=== PATIENT | female | born 1965 | race American Indian/Alaskan Native ===

== ENCOUNTER 2020-07-20 10:58 | Emergency (ER) | payer OTHER ==
[2020-07-20] MEDS ORDERED: IBUPROFEN 800 MG TAB PO ONE ×2 (11:36→15:30)
--- NOTE | 2020-07-20 11:41 | Event Note ---
ED Screening Note Date of service: 07/20/20 Time: 11:39 ED Screening Note: 54-year-old female with a past medical history of hypertension, type 2 diabetes, and bronchitis Complains of chest pain -it started of right-sided 4 days ago but this morning she woke up with left-sided chest pain She reports associated wheezing, and shortness of breath on exertion She denies any cough, swelling, calf pain, fever, chills, nausea, vomiting, or URI symptoms She states that she has had 2 stress tests in the past 10 years, most recent was about 2 years ago, it was a treadmill stress test and it was normal. She states that she typically gets a flareup of her bronchitis once a year. When her symptoms started 4 days ago she has been using the inhaler twice a day without much relief. This initial assessment/diagnostic orders/clinical plan/treatment(s) is/are subject to change based on patients health status, clinical progression and re- assessment by fellow clinical providers in the ED. Further treatment and workup at subsequent clinical providers discretion. Patient/guardian urged not to elope from the ED as their condition may be serious if not clinically assessed and managed. Initial orders include: Chest pain order set.
--- NOTE | 2020-07-20 12:01 | XRay Report ---
CHEST 2 VIEWS INDICATION / CLINICAL INFORMATION: Chest Pain. COMPARISON: None available. FINDINGS: SUPPORT DEVICES: None. HEART / MEDIASTINUM: No significant abnormality. LUNGS / PLEURA: No significant pulmonary or pleural abnormality. No pneumothorax. ADDITIONAL FINDINGS: No significant additional findings. IMPRESSION: 1. No acute findings. Signer Name: Honorio Hutton MD Signed: 07/20/2020 11:57 AM Workstation Name: [id number]
[2020-07-20 12:26] LABS: Basophils % (Auto) 0.4 % (0.0-1.8); Eosinophils % (Auto) 0.4 % (0.0-4.3); Hematocrit 38.8 % (30.3-42.9); Hemoglobin 12.6 gm/dl (10.1-14.3); Lymphocytes % (Auto) 29.2 % (13.4-35.0); Mean Corpuscular HGB Conc 32 % (30-34); Mean Corpuscular Volume 86 fl (79-97); Monocytes # (Auto) 0.5 K/mm3 (0.0-0.8); Monocytes % (Auto) 7.5 % (0.0-7.3); Platelet Count 290 K/mm3 (140-440); Red Cell Distribution Width 14.8 % (13.2-15.2)
[2020-07-20 12:49] LABS: Alanine Aminotransferase 21 units/L (7-56); Blood Urea Nitrogen 8 mg/dL (7-17); Calcium 9.2 mg/dL (8.4-10.2); Hemolysis Index 8
[2020-07-20 12:55] LABS: BUN/Creatinine Ratio 11
--- NOTE | 2020-07-20 14:25 | Emergency Department Report ---
ED General Adult HPI - General Chief complaint: Chest Pain Stated complaint: CHEST PAIN/RESP ISSUE Time Seen by Provider: 07/20/20 11:34 Source: patient Mode of arrival: Ambulatory Limitations: No Limitations - History of Present Illness Initial comments: This 54-year-old female with a past medical history of hypertension diabetes. She presents to the ER complaining that on Wednesday evening she noticed that she had had the need to clear her throat often and that she was wheezing especially when she was in supine position this has continued on and she has been using an inhaler that was prescribed to her for a bout of bronchitis a few few months ivis k. She states that around 6 AM the wheezing that she felt in her chest progressed to be more like pain to her left breast. She denies any fever she denies any productive cough she denies any shortness of breath no abdominal pain no nausea no vomiting no other symptoms. She is currently in no acute distress. at this time -: Gradual (Symptoms of wheezing clearing her throat all started on Wednesday) Location: chest Radiation: non-radiation Quality: aching Consistency: intermittent Worsens with: none Associated Symptoms: chest pain, other (Wheezing) Treatments Prior to Arrival: other (Albuterol inhaler) - Related Data Allergies Allergy/AdvReac Type Severity Reaction Status Date / Time No Known Allergies Allergy Unverified 03/07/18 10:05 ED Review of Systems ROS: Stated complaint: CHEST PAIN/RESP ISSUE Other details as noted in HPI Comment: All other systems reviewed and negative Constitutional: denies: chills, fever, weakness ENT: denies: ear pain, throat pain, dental pain, hearing loss, epistaxis, congestion Respiratory: wheezing. denies: cough, shortness of breath, SOB with exertion, SOB at rest Cardiovascular: chest pain. denies: palpitations, dyspnea on exertion, edema, syncope, paroxysmal nocturnal dyspnea Endocrine: denies: excessive sweating, intolerance to cold, increased urine, unexplained weight gain, unexplained weight loss Gastrointestinal: denies: abdominal pain, nausea, vomiting Genitourinary: denies: urgency, dysuria, frequency, hematuria Neurological: denies: headache, weakness, numbness, paresthesias Psychiatric: denies: anxiety, auditory hallucinations ED Past Medical Hx - Past Medical History Previous Medical History?: Yes Hx Diabetes: Yes - Surgical History Past Surgical History?: No - Social History Smoking Status: Never Smoker ED Physical Exam - General Limitations: No Limitations General appearance: alert, in no apparent distress - Head Head exam: Present: atraumatic, normal inspection - Eye Eye exam: Present: normal appearance - ENT ENT exam: Present: normal exam, mucous membranes dry - Neck Neck exam: Present: normal inspection - Respiratory Respiratory exam: Present: normal lung sounds bilaterally. Absent: respiratory distress, wheezes, rales, rhonchi, chest wall tenderness, accessory muscle use, decreased breath sounds - Cardiovascular Cardiovascular Exam: Present: regular rate, normal heart sounds - GI/Abdominal GI/Abdominal exam: Present: soft, normal bowel sounds. Absent: distended, tenderness, guarding, rebound - Back Exam Back exam: Present: normal inspection - Neurological Exam Neurological exam: Present: alert, oriented X3 - Psychiatric Psychiatric exam: Present: normal affect - Skin Skin exam: Present: warm, dry, intact ED Course Vital Signs 07/20/20 11:06 Temperature 98.4 F Pulse Rate 95 H Respiratory 18 Rate Blood Pressure 166/101 O2 Sat by Pulse 98 Oximetry - Reevaluation(s) Reevaluation #1: 07/20/20 14:25 Patient in no acute distress she is notified of all her results thus far she denies any chest pain at this time she is getting her second troponin drawn all of her findings were all negative. ED Medical Decision Making - Lab Data Result diagrams: 07/20/20 11:53 07/20/20 11:53 - EKG Data EKG shows normal: sinus rhythm Rate: normal (94) - EKG Data Interpretation: other (Sinus rhythm with left atrial enlargement prolonged QT 412) - Radiology Data Radiology results: report reviewed CHEST 2 VIEWS INDICATION / CLINICAL INFORMATION: Chest Pain. COMPARISON: None available. FINDINGS: SUPPORT DEVICES: None. HEART / MEDIASTINUM: No significant abnormality. LUNGS / PLEURA: No significant pulmonary or pleural abnormality. No pneumothorax. ADDITIONAL FINDINGS: No significant additional findings. IMPRESSION: 1. No acute findings. - Medical Decision Making She is well appearing 54-year-old female at the time of my examination she denied any chest pain. Patient described her symptoms starting on Wednesday with wheezing which worsened at night when she laid flat .she used inhaler that was prescribed to relieve her symptoms. Her symptoms progressed and started with her having what felt like pain on the right side of her chest moving to the left side. She denied shortness of breath she denies fever no chills no cough no nausea no vomiting. Patient denies history of allergies but states she has been working outdoors lately. EKG done in the emergency department shows sinus rhythm with probable left atrial enlargement and a rate of 94 her chest x-ray was clear with no acute findings her labs were all within normal limits including a troponin that was less than 0.010. Her repeat troponin was also negative. Her blood pressure 166/101 is elevated with patient does have history of hypertension and she is instructed to follow-up with her PCP regarding this elevated blood pressure. Patient does have a follow-up with Dr. Bryant Dejesus. She is well-appearing and denies any pain at this time I recommend that patient start taking daily allergy medicines such as Zyrtec Claritin or Lucero - Differential Diagnosis Nonspecific chest, seasonal allergy, Critical Care Time: No Critical care attestation.: If time is entered above; I have spent that time in minutes in the direct care of this critically ill patient, excluding procedure time. ED Disposition Clinical Impression: Chest wall pain, Environmental allergies Disposition: - TO HOME OR SELFCARE Is pt being admited?: No Does the pt Need Aspirin: No Condition: Stable Instructions: Allergies, Adult, [id number], Nonspecific Chest Pain, Adult Additional Instructions: You can purchase allergy medication [id number] and take daily as prescribed by package insert you can take one of the following Lucero Claritin or Zyrtec. Please follow-up with Dr. Bryant Dejesus on Wednesday. Return to the emergency room if you develop worsening or increasing or returning chest pain shortness of breath fever coughing. Today your EKG showed no signs of an heart attack. Your cardiac enzymes that was done by blood both were negative. Your chest x-ray showed no acute findings Referrals: BRYANT DEJESUS MD [Primary Care Provider] - 3-5 Days Time of Disposition: 15:09
[2020-07-20 16:18] VITALS: BP 156/98
== END 2020-07-20 15:45 | disposition home or self-care (01) ==
LOC: ED 10:58
DX: T78.40XA Allergy, unspecified, initial encounter (principal); R07.89 Other chest pain; E11.9 Type 2 diabetes mellitus without complications; X58.XXXA Exposure to other specified factors, initial encounter
CPT/HCPCS: 36415; 71046; 80053; 83690; 84484; 85025; 93005

== ENCOUNTER 2021-01-20 14:23 | Inpatient (IN) | payer OTHER ==
[2021-01-20] MEDS ORDERED: NITROGLYCERIN 2% OINT 1 GM TP ONE (14:57)
[2021-01-20] MEDS ORDERED: ASPIRIN 325 MG TAB PO ONE (14:57)
[2021-01-20] MEDS ORDERED: ONDANSETRON 4 MG/2 ML INJ IV ONE (14:57)
[2021-01-20] MEDS ORDERED: fentaNYL 100 MCG/2 ML INJ IV ONE (14:57)
--- NOTE | 2021-01-20 15:07 | Emergency Department Report ---
HPI - General Chief Complaint: Chest Pain Time Seen by Provider: 01/20/21 14:35 - HPI HPI: MSE 5 The patient is a 55-year-old female present with chief complaint of chest pain. Patient states she has had worsening exertional chest pain and dyspnea on e xertion over the past week. Patient now complains of chest heaviness at rest. Patient states the pain occasionally radiates to her left upper extremity. Patient admits to nausea but denies vomiting. Patient is to diaphoresis with her chest pain. Patient currently gets her chest heaviness a score of 7/10. Patient states she was scheduled to have a cardiac cath 01/24/2021 but her symptoms have been worsening ED Past Medical Hx - Past Medical History Hx Hypertension: Yes Hx Diabetes: Yes - Surgical History Additional Surgical History: , abdominoplasty - Family History Family history: no significant - Social History Smoking Status: Never Smoker Substance Use Type: None (Denies illicit drug use), Alcohol (Occasional) ED Review of Systems ROS: Stated complaint: CP/SOB Other details as noted in HPI Constitutional: diaphoresis Eyes: denies: eye pain ENT: denies: throat pain Respiratory: shortness of breath Cardiovascular: chest pain Endocrine: no symptoms reported Gastrointestinal: nausea. denies: vomiting Genitourinary: denies: dysuria Musculoskeletal: denies: back pain Neurological: denies: headache Physical Exam - Physical Exam Vital Signs: Vital Signs 01/20/21 14:31 Temperature 98.4 F Pulse Rate 96 H Respiratory 28 H Rate Blood Pressure 138/80 O2 Sat by Pulse 96 Oximetry Physical Exam: GENERAL: The patient is well-developed well-nourished female sitting in chair appearing to be in moderate discomfort. [] HEENT: Normocephalic. Atraumatic. Extraocular motions are intact. Patient has moist mucous membranes. NECK: Supple. Trachea midline CHEST/LUNGS: Coarse breath sounds. There is no respiratory distress noted. HEART/CARDIOVASCULAR: Regular. There is no tachycardia. There is no gallop rub or murmur. ABDOMEN: Abdomen is soft, nontender. Patient has normal bowel sounds. There is no abdominal distention. SKIN: There is no rash. There is no edema. There is no diaphoresis. NEURO: The patient is awake, alert, and oriented. The patient is cooperative. The patient has no focal neurologic deficits. The patient has normal speech. GCS 15 MUSCULOSKELETAL: TThere is no evidence of acute injury. ED Course Vital Signs 01/20/21 14:31 Temperature 98.4 F Pulse Rate 96 H Respiratory 28 H Rate Blood Pressure 138/80 O2 Sat by Pulse 96 Oximetry ED Medical Decision Making - Lab Data Result diagrams: 01/20/21 15:19 01/20/21 15:19 Laboratory Tests 01/20/21 01/20/21 15:19 15:19 WBC 7.9 RBC 4.85 Hgb 13.7 Hct 41.7 MCV 86 MCH 28 MCHC 33 RDW 15.8 H Plt Count 263 Lymph % (Auto) 33.3 [place] % (Auto) 5.7 Eos % (Auto) 1.1 Baso % (Auto) 0.5 Lymph # (Auto) 2.6 [place] # (Auto) 0.5 Eos # (Auto) 0.1 Baso # (Auto) 0.0 Seg Neutrophils % 59.4 Seg Neutrophils # 4.7 Sodium 141 Potassium 4.0 Chloride 105.4 Carbon Dioxide 20 L Anion Gap 20 BUN 13 Creatinine 0.7 Estimated GFR > 60 BUN/Creatinine Ratio 19 Glucose 95 Calcium 9.1 Total Creatine Kinase 165 H CK-MB (CK-2) 2.3 CK-MB (CK-2) Rel Index 1.3 Troponin T < 0.010 - EKG Data -: EKG Interpreted by Me EKG shows normal: sinus rhythm Rate: normal - EKG Data When compared to previous EKG there are: no significant change Interpretation: unchanged when compared t (07/20/2020) - Radiology Data Radiology results: report reviewed (Chest x-ray), image reviewed (Chest x-ray) interpreted by me: Chest x-ray-no definite focal infiltrates, no pneumothorax [facility] [address] [place] [address] XRay Report Signed Patient: LOUISA BEAN MR#: [id number] : 1965 Acct:[id number] Age/Sex: 55 / F ADM Date: 01/20/21 Loc: ED Attending Dr: Ordering Physician: CARI MCDERMOTT MD Date of Service: 01/20/21 Procedure(s): XR chest routine 2V Accession Number(s): [id number] cc: CARI MCDERMOTT MD Fluoro Time In Minutes: CHEST 2 VIEWS INDICATION: chest pain. COMPARISON: 07/20/2020 FINDINGS: Support devices: None. Heart: Within normal limits. Lungs/pleura: Mild central pulmonary venous congestion has developed. No evidence for infiltrate, pleural fluid or pneumothorax. Additional findings: None. IMPRESSION: Mild central pulmonary venous congestion. Signer Name: Wilfrid Vergara Jr, MD Signed: 01/20/2021 3:39 PM Workstation Name: [id number] Transcribed By: TTR Dictated By: WILFRID VERGARA JR, MD Electronically Authenticated By: WILFRID VERGARA JR, MD Signed Date/Time: 01/20/211538 DD/ 38 TD/TT: Print Cancel - Differential Diagnosis ACS, pericarditis, GERD, angina Critical care attestation.: If time is entered above; I have spent that time in minutes in the direct care of this critically ill patient, excluding procedure time. ED Disposition Clinical Impression: Chest pain Disposition: 09 ADMITTED INPATIENT Is pt being admited?: Yes Does the pt Need Aspirin: Yes Condition: Fair Instructions: Nonspecific Chest Pain, Adult Time of Disposition: 16:27 (Hospitalist called (Dr. Casiano)) Heart Score - HEART Score History: Highly suspicious EKG: Normal Age: 45-65 Risk factors: > 3 risk factors or hx of atherosclerotic disease Troponin: < normal limit HEART Score: 5 - EKG Read Time Time EKG Completed: 14:40 EKG Read Time: 14:27
--- NOTE | 2021-01-20 15:43 | XRay Report ---
CHEST 2 VIEWS INDICATION: chest pain. COMPARISON: 07/20/2020 FINDINGS: Support devices: None. Heart: Within normal limits. Lungs/pleura: Mild central pulmonary venous congestion has developed. No evidence for infiltrate, pl eural fluid or pneumothorax. Additional findings: None. IMPRESSION: Mild central pulmonary venous congestion. Signer Name: Wilfrid Vergara Jr, MD Signed: 01/20/2021 3:39 PM Workstation Name: [id number]
[2021-01-20 16:10] LABS: Basophils % (Auto) 0.5 % (0.0-1.8); Eosinophils # (Auto) 0.1 K/mm3 (0.0-0.4); Eosinophils % (Auto) 1.1 % (0.0-4.3); Hematocrit 41.7 % (30.3-42.9); Hemoglobin 13.7 gm/dl (10.1-14.3); Lymphocytes # (Auto) 2.6 K/mm3 (1.2-5.4); Lymphocytes % (Auto) 33.3 % (13.4-35.0); Mean Corpuscular HGB Conc 33 % (30-34); Mean Corpuscular Volume 86 fl (79-97); Monocytes # (Auto) 0.5 K/mm3 (0.0-0.8); Monocytes % (Auto) 5.7 % (0.0-7.3); Platelet Count 263 K/mm3 (140-440); Red Blood Count 4.85 M/mm3 (3.65-5.03); Red Cell Distribution Width 15.8 % (13.2-15.2)
[2021-01-20 16:22] LABS: Creatine Kinase MB 2.3 ng/mL (0.0-4.0)
[2021-01-20 16:23] LABS: Blood Urea Nitrogen 13 mg/dL (7-17); Calcium 9.1 mg/dL (8.4-10.2); Hemolysis Index 7
[2021-01-20 16:24] LABS: BUN/Creatinine Ratio 19
[2021-01-20] MEDS ORDERED: ACETAMINOPHEN 325 MG TAB PO PRN (22:43)
[2021-01-20] MEDS ORDERED: ONDANSETRON 4 MG/2 ML INJ IV PRN (22:43)
[2021-01-20] MEDS ORDERED: oxyCODONE /ACETAMINOPHEN 5-325MG TAB PO PRN (22:43)
--- NOTE | 2021-01-20 22:43 | History and Physical Report ---
History of Present Illness Date of examination: 01/20/21 Date of admission: 01/20/21 16:28 Chief complaint: Chest pain for 1 week History of present illness: 55-year-old -[place] female with history of hypertension and diabetes comes in for recurrent chest pain for 1 week. Chest pain is exertional. Also chest dyspnea on exertion. Patient complains of chest heaviness at rest and occasionally radiates to the left upper extremity. She also admits to nausea but no vomiting. No shortness of breath at rest and no diaphoresis. Exercises exacerbating factor. Pain is about 7 on a scale of 1-10 when she gets the pain. Patient is scheduled to have a cardiac cath on 26 Aug 2020 but because of her worsening symptoms patient has come to the emergency room. No fever or chills. No exposure to Covid virus. - Past Medical History --Hypertension: Yes --Diabetes: Yes - Surgical History Additional Surgical History: , abdominoplasty - Family History Family history: no significant - Social History Smoking Status: Never Smoker Substance Use Type: None (Denies illicit drug use), Alcohol (Occasional) Review of Systems ROS: Stated complaint: CP/SOB Other details as noted in HPI Constitutional: diaphoresis Eyes: denies: eye pain ENT: denies: throat pain Respiratory: shortness of breath Cardiovascular: chest pain Endocrine: no symptoms reported Gastrointestinal: nausea. denies: vomiting Genitourinary: denies: dysuria Musculoskeletal: denies: back pain Neurological: denies: headache Medications and Allergies Allergies Allergy/AdvReac Type Severity Reaction Status Date / Time No Known Allergies Allergy Verified 01/20/21 14:25 Exam - Constitutional Vitals: Temp Pulse Resp BP Pulse Ox 98.4 F 93 H 19 164/93 97 01/20/21 14:31 01/20/21 21:01 01/20/21 21:01 01/20/21 21:01 01/20/21 21:01 General appearance: Present: no acute distress, well-nourished - EENT Eyes: Present: PERRL ENT: hearing intact, clear oral mucosa - Neck Neck: Present: supple, normal ROM - Respiratory Respiratory effort: normal Respiratory: bilateral: CTA - Cardiovascular Heart rate: 78 Rhythm: regular Heart Sounds: Present: S1 & S2. Absent: rub, click - Extremities Extremities: pulses symmetrical, No edema Peripheral Pulses: within normal limits - Abdominal General gastrointestinal: Present: soft, non-tender, non-distended, normal bowel sounds Female genitourinary: Present: normal - Integumentary Integumentary: Present: clear, warm, dry - Musculoskeletal Musculoskeletal: gait normal, strength equal bilaterally - Psychiatric Psychiatric: appropriate mood/affect, intact judgment & insight - Neurologic Neurologic: CNII-XII intact, moves all extremities HEART Score - HEART Score History: Moderately suspicious EKG: Normal Age: 45-65 Risk factors: 1-2 risk factors Troponin: Troponin T < 0.010 ng/mL (0.00-0.029) 01/20/21 15:19 Troponin: < normal limit HEART Score: 3 - Critical Actions Critical Actions: 0-3 pts:0.9-1.7%risk of adverse cardiac event.Candidate for discharge Results - Labs CBC & Chem 7: 01/20/21 15:19 01/20/21 15:19 Labs: Laboratory Last Values WBC 7.9 K/mm3 (4.5-11.0) 01/20/21 15:19 RBC 4.85 M/mm3 (3.65-5.03) 01/20/21 15:19 Hgb 13.7 gm/dl (10.1-14.3) 01/20/21 15:19 Hct 41.7 % (30.3-42.9) 01/20/21 15:19 MCV 86 fl (79-97) 01/20/21 15:19 MCH 28 pg (28-32) 01/20/21 15:19 MCHC 33 % (30-34) 01/20/21 15:19 RDW 15.8 % (13.2-15.2) H 01/20/21 15:19 Plt Count 263 K/mm3 (140-440) 01/20/21 15:19 Lymph % (Auto) 33.3 % (13.4-35.0) 01/20/21 15:19 [place] % (Auto) 5.7 % (0.0-7.3) 01/20/21 15:19 Eos % (Auto) 1.1 % (0.0-4.3) 01/20/21 15:19 Baso % (Auto) 0.5 % (0.0-1.8) 01/20/21 15:19 Lymph # (Auto) 2.6 K/mm3 (1.2-5.4) 01/20/21 15:19 [place] # (Auto) 0.5 K/mm3 (0.0-0.8) 01/20/21 15:19 Eos # (Auto) 0.1 K/mm3 (0.0-0.4) 01/20/21 15:19 Baso # (Auto) 0.0 K/mm3 (0.0-0.1) 01/20/21 15:19 Seg Neutrophils % 59.4 % (40.0-70.0) 01/20/21 15:19 Seg Neutrophils # 4.7 K/mm3 (1.8-7.7) 01/20/21 15:19 Sodium 141 mmol/L (137-145) 01/20/21 15:19 Potassium 4.0 mmol/L (3.6-5.0) 01/20/21 15:19 Chloride 105.4 mmol/L (98-107) 01/20/21 15:19 Carbon Dioxide 20 mmol/L (22-30) L 01/20/21 15:19 Anion Gap 20 mmol/L 01/20/21 15:19 BUN 13 mg/dL (7-17) 01/20/21 15:19 Creatinine 0.7 mg/dL (0.6-1.2) 01/20/21 15:19 Estimated GFR > 60 ml/min 01/20/21 15:19 BUN/Creatinine Ratio 19 % 01/20/21 15:19 Glucose 95 mg/dL (65-100) 01/20/21 15:19 Calcium 9.1 mg/dL (8.4-10.2) 01/20/21 15:19 Total Creatine Kinase 165 units/L (30-135) H 01/20/21 15:19 CK-MB (CK-2) 2.3 ng/mL (0.0-4.0) 01/20/21 15:19 CK-MB (CK-2) Rel Index 1.3 (0-4) 01/20/21 15:19 Troponin T < 0.010 ng/mL (0.00-0.029) 01/20/21 15:19 Short CBC 01/20/21 Range/Units 15:19 WBC 7.9 (4.5-11.0) K/mm3 Hgb 13.7 (10.1-14.3) gm/dl Hct 41.7 (30.3-42.9) % Plt Count 263 (140-440) K/mm3 BMP 01/20/21 15:19 Sodium 141 Potassium 4.0 Chloride 105.4 Carbon Dioxide 20 L BUN 13 Creatinine 0.7 Glucose 95 Calcium 9.1 Cardiac Enzymes 01/20/21 01/20/21 Range/Units 15:19 23:58 Total Creatine Kinase 165 H 131 (30-135) units/L CK-MB (CK-2) 2.3 1.9 (0.0-4.0) ng/mL Troponin T < 0.010 < 0.010 (0.00-0.029) ng/mL - Imaging and Cardiology EKG: report reviewed (Normal sinus rhythm, no acute ST-T wave changes) Assessment and Plan Advance Directives: Yes (Yes) VTE prophylaxis?: Chemical Plan of care discussed with patient/family: Yes - Patient Problems (1) Acute coronary syndrome Current Visit: Yes Status: Acute Plan to address problem: Lexiscan was not requested Will defer to cardiology regarding cardiac cath scheduling Serial troponins and CK-MBs No heparin was started (2) Hypertension Current Visit: Yes Status: Chronic Qualifiers: Hypertension type: primary hypertension Qualified Code(s): I10 - Essential (primary) hypertension Plan to address problem: Patient initiated on losartan 50 mg once a day (3) T2DM (type 2 diabetes mellitus) Current Visit: Yes Status: Chronic Qualifiers: Diabetes mellitus care home insulin use: unspecified care home insulin use status Plan to address problem: Coverage for now and check hemoglobin A1c Patient is not sure about her medications No medications to be reconciled (4) Morbid obesity with BMI of 40.0-44.9, adult Current Visit: Yes Status: Chronic Plan to address problem: Patient counseled about her weight and referral to bariatric surgery to be given at the time of discharge Dr. Bolden is in-house bariatric surgeon (5) DVT prophylaxis Current Visit: Yes Status: Acute Plan to address problem: On heparin and GI prophylaxis
[2021-01-21 00:28] LABS: Creatine Kinase MB 1.9 ng/mL (0.0-4.0)
[2021-01-21] MEDS: FAMOTIDINE 20 MG/2 ML INJ IV SCH ×3 (02:13→22:21)
[2021-01-21] MEDS: HEPARIN 5,000 UNIT/1 ML VIAL SUB-Q SCH ×3 (02:13→22:21)
[2021-01-21] MEDS: SODIUM CHLORIDE 0.9% 1000 ML 1,000 ML IV SCH ×2 (02:18→18:27)
[2021-01-21 06:17] LABS: Basophils % (Auto) 0.3 % (0.0-1.8); Eosinophils # (Auto) 0.1 K/mm3 (0.0-0.4); Hematocrit 36.3 % (30.3-42.9); Hemoglobin 11.9 gm/dl (10.1-14.3); Lymphocytes # (Auto) 2.7 K/mm3 (1.2-5.4); Lymphocytes % (Auto) 36.4 % (13.4-35.0); Mean Corpuscular HGB Conc 33 % (30-34); Mean Corpuscular Volume 86 fl (79-97); Monocytes # (Auto) 0.5 K/mm3 (0.0-0.8); Platelet Count 233 K/mm3 (140-440); Red Blood Count 4.23 M/mm3 (3.65-5.03); Red Cell Distribution Width 15.6 % (13.2-15.2)
[2021-01-21 06:33] LABS: Creatine Kinase MB 1.7 ng/mL (0.0-4.0)
[2021-01-21 06:38] LABS: Alanine Aminotransferase 71 units/L (7-56); Albumin 3.9 g/dL (3.9-5); BUN/Creatinine Ratio 18; Blood Urea Nitrogen 14 mg/dL (7-17); Calcium 9.2 mg/dL (8.4-10.2); Hemolysis Index 1
[2021-01-21] MEDS: HYDROmorphone 1 MG/1 ML INJ IV PRN ×2 (09:42→18:25)
[2021-01-21 11:52] LABS: Creatine Kinase MB 1.6 ng/mL (0.0-4.0)
[2021-01-21] MEDS ORDERED: SODIUM CHLORIDE 0.9% 500 ML 500 ML IV SCH (13:00)
--- NOTE | 2021-01-21 14:59 | Progress Note ---
Assessment and Plan (1) Acute coronary syndrome Current Visit: Yes Status: Acute Plan to address problem: Lexiscan was not requested Will defer to cardiology regarding cardiac cath scheduling Serial troponins and CK-MBs No heparin was started (2) Hypertension Current Visit: Yes Status: Chronic Qualifiers: Hypertension type: primary hypertension Qualified Code(s): I10 - Essential (primary) hypertension Plan to address problem: Patient initiated on losartan 50 mg once a day (3) T2DM (type 2 diabetes mellitus) Current Visit: Yes Status: Chronic Qualifiers: Diabetes mellitus group home insulin use: unspecified group home insulin use status Plan to address problem: Coverage for now and check hemoglobin A1c Patient is not sure about her medications No medications to be reconciled (4) Morbid obesity with BMI of 40.0-44.9, adult Current Visit: Yes Status: Chronic Plan to address problem: Patient counseled about her weight and referral to bariatric surgery to be given at the time of discharge Dr. Bolden is in-house bariatric surgeon (5) DVT prophylaxis Current Visit: Yes Status: Acute Plan to address problem: On heparin and GI prophylaxis Brief History: 01/21/21: Cardiac cath tomorrow Subjective Date of service: 01/21/21 Objective - Constitutional Vitals: Vital Signs - 12hr 01/21/21 01/21/21 01/21/21 03:47 08:36 11:16 Temperature 97.5 F L 97.8 F 97.8 F Pulse Rate 84 91 H 85 Respiratory 17 14 18 Rate Blood Pressure 115/69 133/88 124/68 O2 Sat by Pulse 96 98 98 Oximetry - Labs CBC & Chem 7: 01/21/21 05:25 01/21/21 05:25 Labs: Abnormal lab results 01/20/21 01/20/21 01/21/21 Range/Units 15:19 15:19 05:25 RDW 15.8 H 15.6 H (13.2-15.2) % Lymph % (Auto) 36.4 H (13.4-35.0) % Chloride (98-107) mmol/L Carbon Dioxide 20 L (22-30) mmol/L Glucose (65-100) mg/dL Hemoglobin A1c (4-6) % ALT (7-56) units/L Total Creatine Kinase 165 H (30-135) units/L 01/21/21 01/21/21 Range/Units 05:25 05:25 RDW (13.2-15.2) % Lymph % (Auto) (13.4-35.0) % Chloride 108.3 H (98-107) mmol/L Carbon Dioxide (22-30) mmol/L Glucose 107 H (65-100) mg/dL Hemoglobin A1c 8.1 H (4-6) % ALT 71 H (7-56) units/L Total Creatine Kinase (30-135) units/L HEART Score - HEART Score EKG: Normal Age: 45-65 Risk factors: 1-2 risk factors Troponin: Troponin T < 0.010 ng/mL (0.00-0.029) 01/21/21 10:36 Troponin: < normal limit - Critical Actions Critical Actions: 0-3 pts:0.9-1.7%risk of adverse cardiac event.Candidate for discharge
--- NOTE | 2021-01-21 15:02 | Consultation ---
History of Present Illness Consult date: 01/21/21 Requesting physician: EUSEBIA HECK History of present illness: Patient is 55y/o female with a PMHx of HTN and DM who presented to ED with a complaint of SOB and chest pain x4-6 weeks but has progressively worsened in the last 2-3 days. The patient describes her pain as a pressure that is worsened with exertion and relieved by rest. She rates the pain as 8/10. She is also reports SOB, LEONARD, and orthopnea that has worsened over the past few weeks. She denies palpitations, lightheadedness, nausea, or vomiting. Of note the patient i s scheduled to have a cardiac cath this Wednesday due to an abnormal stress test but she came in due to the worsening of her SOB and chest pain. She is followed by Dr. Burrows of our group. Cardiology is consulted for her chest Past History Past Medical History: diabetes, hypertension Past Surgical History: No surgical history Social history: no significant social history Family history: stroke Medications and Allergies Allergies Allergy/AdvReac Type Severity Reaction Status Date / Time No Known Allergies Allergy Verified 01/20/21 14:25 Active Meds: Active Medications Acetaminophen (Acetaminophen 325 Mg Tab) 650 mg PO Q4H PRN PRN Reason: Pain MILD(1-3)/Fever >100.5/RIVERO Carvedilol (Carvedilol 6.25 Mg Tab) 6.25 mg PO BID [facility] Famotidine (Famotidine 20 Mg/2 Ml Inj) 20 mg IV BID [facility] Last Admin: 01/21/21 09:42 Dose: 20 mg Documented by: Heparin Sodium (Porcine) (Heparin 5,000 Unit/1 Ml Vial) 5,000 unit SUB-Q Q12HR [facility] Last Admin: 01/21/21 10:38 Dose: Not Given Documented by: Hydromorphone HCl (Hydromorphone 1 Mg/1 Ml Inj) 0.5 mg IV Q3H PRN PRN Reason: Pain , Severe (7-10) Last Admin: 01/21/21 09:42 Dose: 0.5 mg Documented by: Sodium Chloride (Nacl 0.9% 1000 Ml) 1,000 mls @ 75 mls/hr IV DIRECT [facility] Last Admin: 01/21/21 02:18 Dose: 75 mls/hr Documented by: Sodium Chloride (Nacl 0.9% 500 Ml) 500 mls @ 50 mls/hr IV DIRECT [facility] Stop: 01/21/21 22:59 Losartan Potassium (Losartan 50 Mg Tab) 100 mg PO QDAY [facility] Ondansetron HCl (Ondansetron 4 Mg/2 Ml Inj) 4 mg IV Q8H PRN PRN Reason: Nausea And Vomiting Oxycodone/Acetaminophen (Oxycodone /Acetaminophen 5-325mg Tab) 1 tab PO Q6H PRN PRN Reason: Pain, Moderate (4-6) Pravastatin Sodium (Pravastatin 20 Mg Tab) 20 mg PO QHS [facility] Sodium Chloride (Sodium Chloride 0.9% 10 Ml Flush Syringe) 10 ml IV BID [facility] Last Admin: 01/21/21 09:45 Dose: 10 ml Documented by: Sodium Chloride (Sodium Chloride 0.9% 10 Ml Flush Syringe) 10 ml IV PRN PRN PRN Reason: LINE FLUSH Review of Systems All systems: negative Constitutional: no weight loss, no weight gain, no fever, no chills Ears, nose, mouth and throat: no nasal congestion, no nasal discharge, no sinus pressure Cardiovascular: chest pain, orthopnea, shortness of breath, dyspnea on exertion, no palpitations, no rapid/irregular heart beat, no edema, no lightheadedness, no high blood pressure Respiratory: shortness of breath, dyspnea on exertion, no cough with sputum, no excessive sputum Gastrointestinal: no abdominal pain, no nausea, no vomiting, no diarrhea Musculoskeletal: no neck stiffness, no neck pain, no shooting arm pain Integumentary: no rash, no pruritis, no redness Neurological: no head injury, no transient paralysis, no paralysis Psychiatric: no anxiety, no memory loss Endocrine: no cold intolerance, no heat intolerance Hematologic/Lymphatic: no easy bruising, no easy bleeding Physical Examination Vital Signs Temp Pulse Resp BP Pulse Ox 98.4 F 96 H 28 H 138/80 96 01/20/21 14:31 01/20/21 14:31 01/20/21 14:31 01/20/21 14:31 01/20/21 14:31 General appearance: no acute distress HEENT: Positive: PERRL Neck: Positive: trachea midline Cardiac: Positive: Reg Rate and Rhythm Lungs: Positive: Decreased Breath Sounds Neuro: Positive: Grossly Intact Abdomen: Positive: Soft, Active Bowel Sounds Skin: Negative: Rash, Suspicious Lesions, Ulceration Extremities: Present: upper extr. pulses, lower extr. pulses. Absent: edema Results 01/21/21 05:25 01/21/21 05:25 Cardiac Enzymes 01/20/21 01/20/21 01/21/21 Range/Units 15:19 23:58 05:25 AST 40 (5-40) units/L CK-MB (CK-2) 2.3 1.9 (0.0-4.0) ng/mL 01/21/21 01/21/21 Range/Units 05:25 10:36 AST (5-40) units/L CK-MB (CK-2) 1.7 1.6 (0.0-4.0) ng/mL CBC 01/20/21 01/21/21 Range/Units 15:19 05:25 WBC 7.9 7.4 (4.5-11.0) K/mm3 RBC 4.85 4.23 (3.65-5.03) M/mm3 Hgb 13.7 11.9 (10.1-14.3) gm/dl Hct 41.7 36.3 (30.3-42.9) % Plt Count 263 233 (140-440) K/mm3 Lymph # (Auto) 2.6 2.7 (1.2-5.4) K/mm3 [place] # (Auto) 0.5 0.5 (0.0-0.8) K/mm3 Eos # (Auto) 0.1 0.1 (0.0-0.4) K/mm3 Baso # (Auto) 0.0 0.0 (0.0-0.1) K/mm3 Comprehensive Metabolic Panel 01/20/21 01/21/21 Range/Units 15:19 05:25 Sodium 141 143 (137-145) mmol/L Potassium 4.0 4.3 (3.6-5.0) mmol/L Chloride 105.4 108.3 H (98-107) mmol/L Carbon Dioxide 20 L 22 (22-30) mmol/L BUN 13 14 (7-17) mg/dL Creatinine 0.7 0.8 (0.6-1.2) mg/dL Glucose 95 107 H (65-100) mg/dL Calcium 9.1 9.2 (8.4-10.2) mg/dL AST 40 (5-40) units/L ALT 71 H (7-56) units/L Alkaline Phosphatase 75 (35-129) units/L Total Protein 6.5 (6.3-8.2) g/dL Albumin 3.9 (3.9-5) g/dL - Imaging and Cardiology Echo: report reviewed Cardiac cath: pending EKG: report reviewed, image reviewed EKG interpretations - Telemetry EKG Rhythm: Sinus Rhythm - EKG Sinus rhythms and dysrhythmias: sinus rhythm Assessment and Plan Patient is 55 y/o female with a PMHx of HTN and DM who presented to ED with a complaint of SOB and chest pain Chest pain Cardiomyopathy HFrEF HTN * EKG shows sinus 83 with no acute ischemic changes. Troponins negative x3. AMI ruled out * Echo 12/20/2020- EF 20 to 25%, left ventricle chamber is mildly dilated, inferior wall appears moderately hypokinetic, septal wall appears moderately hypokinetic, increased left atrial pressure, grade 2 diastolic dysfunction * Lexiscan MPI stress test 12/20/2020-abnormal study. Mild to moderately reduced perfusion defect of small to medium size in the basal mid apical anteroapical apical wall mildly reduced perfusion defect of small size and basal inferior wall no stress-induced arrhythmia Plan: Restart home medications: Losartan 100mg PO QD, Coreg 6.25mg PO BID, Pravastatin 20mg PO Qhs Patient for cardiac cath in AM. NPO after midnight. Will continue to follow Patient seen in conjunction with Dr. Edwards who agrees with this plan of care. 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
[2021-01-21] MEDS: carvediloL 6.25 MG TAB PO SCH ×2 (16:28→22:19)
[2021-01-21] MEDS: LOSARTAN 50 MG TAB PO SCH (16:28)
[2021-01-21] MEDS: PRAVASTATIN 20 MG TAB PO SCH (22:19)
[2021-01-22 04:34] LABS: Basophils # (Auto) 0.1 K/mm3 (0.0-0.1); Basophils % (Auto) 2.3 % (0.0-1.8); Eosinophils # (Auto) 0.1 K/mm3 (0.0-0.4); Eosinophils % (Auto) 1.5 % (0.0-4.3); Hematocrit 37.4 % (30.3-42.9); Hemoglobin 12.2 gm/dl (10.1-14.3); Lymphocytes # (Auto) 2.6 K/mm3 (1.2-5.4); Lymphocytes % (Auto) 42.5 % (13.4-35.0); Mean Corpuscular HGB Conc 33 % (30-34); Mean Corpuscular Volume 86 fl (79-97); Monocytes # (Auto) 0.4 K/mm3 (0.0-0.8); Monocytes % (Auto) 7.3 % (0.0-7.3); Platelet Count 252 K/mm3 (140-440); Red Blood Count 4.37 M/mm3 (3.65-5.03)
[2021-01-22 04:41] LABS: BUN/Creatinine Ratio 19; Blood Urea Nitrogen 15 mg/dL (7-17); Calcium 8.8 mg/dL (8.4-10.2); Hemolysis Index 5
[2021-01-22 04:51] LABS: INR 0.9 (0.87-1.13); Partial Thromboplastin Time 27.2 Sec. (24.2-36.6)
[2021-01-22] MEDS: ALBUTEROL 2.5 MG/3 ML NEBU IH PRN ×2 (05:57→11:11)
[2021-01-22] MEDS ORDERED: ASPIRIN EC 325 MG TAB PO NR (08:34)
[2021-01-22] MEDS ORDERED: HEPARIN 10,000 UNITS/10 ML VIAL ONE (08:47)
[2021-01-22] MEDS ORDERED: NITROGLYCERIN SYRINGE 3 ML ONE (08:47)
[2021-01-22] MEDS ORDERED: LIDOCAINE (2%) 20 MG/1 ML VIAL 20 ML MDV INFILTRATI ONE (08:47)
[2021-01-22] MEDS ORDERED: HEPARIN/NS 5000 UNIT/500ML 1,000 ML IR ONE (08:47)
[2021-01-22] MEDS ORDERED: VERAPAMIL 5 MG/2 ML INJ ONE (08:47)
[2021-01-22] MEDS ORDERED: MIDAZOLAM 2 MG/2 ML INJ ONE (08:48)
[2021-01-22] MEDS ORDERED: fentaNYL 100 MCG/2 ML INJ ONE (08:48)
[2021-01-22] MEDS ORDERED: SODIUM CHLORIDE 0.9% 500 ML 500 ML IV SCH (09:00)
[2021-01-22] MEDS: FAMOTIDINE 20 MG/2 ML INJ IV SCH ×2 (10:00→21:13)
[2021-01-22] MEDS: HEPARIN 5,000 UNIT/1 ML VIAL SUB-Q SCH ×2 (10:00→21:13)
[2021-01-22] MEDS ORDERED: FUROSEMIDE 40 MG/4 ML INJ ONE (10:06)
--- NOTE | 2021-01-22 10:30 | Cardiac Catherization Report ---
DATE OF PROCEDURE: 01/22/2021 REFERRING PHYSICIANS: Dr. Mari and Dr. Casiano. INDICATIONS FOR PROCEDURE: The patient is a pleasant 55-year-old -Domin[place] female who usually sees Dr. Bryant Dejesus here, admitted with chest pain, found to have an abnormal nuclear stress test with multiple perfusion defects, and EF of 30%. This is a new cardiomyopathy. She is referred for left heart catheterization. Yesterday, she presented to the hospital with chest pain. Risks, benefits and alternatives were discussed at length prior to obtaining informed consent. PROCEDURE IN DETAIL: The patient was brought to [facility] in a postabsorptive state, prepped and draped in sterile fashion. Sergo's test in right hand is normal. Then, 2 mL of 2% lidocaine was used to anesthetize the right wrist. A standard 6-Slovak hydrophilic sheath used to cannulate the right radial artery via modified Seldinger technique. All exchanges performed to exchange a J-tip guidewire. JL3.5 catheter was used to engage the left main. No dampening or ventricularization. Cineangiography performed in multiple projections. JR4 catheter used to cross the aortic valve under fluoroscopic guidance. Left ventriculography was performed in 30 PAIZ and 30 GREEK projections via hand injections, catheter flushed. Manual pullback performed with continuous pressure monitoring. Catheter used to engage the right coronary. No dampening or ventricularization. Cineangiography performed in multiple projections. Next, catheter removed from the body of wire, sheath removed. Manual pressure used to achieve hemostasis. DATA: Aortic pressure is 160/100, LV pressure is 160, LVEDP of 41 mmHg. The patient remained in normal sinus rhythm throughout the procedure. Coronary anatomy is a right dominant system. Right coronary is a moderate sized vessel, courses AV groove, distally bifurcates into posterior descending and posterolateral branches. No discrete stenoses noted. Left main without significant disease, bifurcates into left anterior descending and left circumflex. Left circumflex is moderate sized vessel, courses AV groove. No significant disease. LAD is a moderate sized vessel, courses anterior interventricular groove, wraps around the apex, no significant disease noted. Left ventriculography reveals moderate to severe global left ventricular hypokinesis, estimated ejection fraction of 35%-40%. No evidence of aortic stenosis. I directly supervised the administration of moderate sedation with fentanyl and Versed from 9:30 a.m. to 9:59 a.m. There were no immediate complications. The patient tolerated the procedure well. CONCLUSIONS: 1. No angiographic evidence of significant epicardial coronary artery disease in this right dominant system. 2. Moderate to severe global left ventricular hypokinesis estimated ejection fraction of 35%-40%. 3. Markedly elevated LVEDP. 4. No evidence of aortic stenosis. These findings are consistent with a moderate to severe dilated nonischemic cardiomyopathy, which is not well compensated. At this point, we will diurese the patient for another day or two near euvolemia. The etiology of her cardiomyopathy is unclear. She was on phentermine for some time. This was discontinued by the patient herself about a month ago. We will up titrate beta blockade and CONNOR inhibition as possible. Hold metformin. IV diuresis. Long discussion with the patient regarding results. Heart failure protocol. Low salt diet. We will follow along. TID: [id number] RECEIPT: [id number] JERAMIE/SALAZAR cc: BRYANT DEJESUS MD, CHANO MARI MD
[2021-01-22] MEDS: carvediloL 6.25 MG TAB PO SCH (11:05)
[2021-01-22] MEDS: LOSARTAN 50 MG TAB PO SCH (11:05)
[2021-01-22] MEDS ORDERED: carvediloL 6.25 MG TAB PO SCH (11:41)
--- NOTE | 2021-01-22 11:46 | Electrocardiograph Report ---
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
--- NOTE | 2021-01-22 11:49 | Electrocardiograph Report ---
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
--- NOTE | 2021-01-22 13:11 | Progress Note ---
Assessment and Plan Patient is 55 y/o female with a PMHx of HTN and DM who presented to ED with a complaint of SOB and chest pain Chest pain Cardiomyopathy HFrEF HTN * EKG shows sinus 83 with no acute ischemic changes. Troponins negative x3. AMI ruled out * Echo 12/20/2020- EF 20 to 25%, left ventricle chamber is mildly dilated, inferior wall appears moderately hypokinetic, septal wall appears moderately hypokinetic, increased left atrial pressure, grade 2 diastolic dysfunction * Lexiscan MPI stress test 12/20/2020-abnormal study. Mild to moderately reduced perfusion defect of small to medium size in the basal mid apical anteroapical apical wall mildly reduced perfusion defect of small size and basal inferior wall no stress-induced arrhythmia * C 01/22/2021-no evidence of coronary artery disease, moderate to severe global left ventricular hypokinesis EF 35 to 40%, markedly elevated LVEDP, no evidence of aortic stenosis endings are consistent with moderate to severe dilated nonischemic cardiomyopathy which is not well compensated * Currently on: Losartan 100mg PO QD, Coreg 6.25mg PO BID, Pravastatin 20mg PO Qhs Plan: In setting of HFrEF and HTN will increase Coreg 12.5mg PO BID. Start diuresis with Lasix 40mg IV BID. Educated patient on importance medication compliance and lifestyle modifications. Will also consult nutrition for patient education regarding diet. Patient seen in conjunction with Dr. Edwards who agrees with this plan of care.Will continue to follow - Patient Problems (1) Cardiomyopathy Current Visit: Yes Status: Acute (2) Chest pain Current Visit: Yes Status: Acute (3) Hypertension Current Visit: Yes Status: Chronic Qualifiers: Hypertension type: primary hypertension Qualified Code(s): I10 - Essential (primary) hypertension (4) Morbid obesity with BMI of 40.0-44.9, adult Current Visit: Yes Status: Chronic (5) T2DM (type 2 diabetes mellitus) Current Visit: Yes Status: Chronic Qualifiers: Diabetes mellitus emt intermediate insulin use: unspecified senior care insulin use status (6) HFrEF (heart failure with reduced ejection fraction) Current Visit: Yes Status: Acute Subjective Date of service: 01/22/21 Principal diagnosis: HFrEF Interval history: Patient for [facility] this AM Patient sinus 90s on monitor Objective Vital Signs Temp Pulse Pulse Resp Resp BP Pulse Ox 01/22/21 12:00 98.1 F 86 18 148/86 98 01/22/21 11:32 95 H 98 01/22/21 11:11 96 H 20 01/22/21 10:40 98.1 F 95 H 18 158/84 01/22/21 05:58 80 20 01/22/21 05:00 78 01/22/21 03:46 97.6 F 78 18 129/83 98 01/21/21 23:36 97.8 F 16 132/70 01/21/21 23:27 97.7 F 91 H 16 112/49 97 01/21/21 22:19 86 126/76 01/21/21 22:00 97 01/21/21 21:00 99 H 01/21/21 19:05 98.3 F 86 16 126/76 97 01/21/21 15:40 98.5 F 84 20 129/85 98 - Physical Examination General: No Apparent Distress HEENT: Positive: PERRL Neck: Positive: trachea midline Cardiac: Positive: Reg Rate and Rhythm Lungs: Positive: Wheezes Neuro: Positive: Grossly Intact Abdomen: Positive: Soft, Active Bowel Sounds Skin: Negative: Rash, Suspicious Lesions, Ulceration Extremities: Present: upper extr. pulses, lower extr. pulses. Absent: edema - Labs and Meds Coagulation 01/22/21 Range/Units 03:55 PT 12.7 (12.2-14.9) Sec. INR 0.90 (0.87-1.13) APTT 27.2 (24.2-36.6) Sec. CBC 01/22/21 Range/Units 03:55 WBC 6.1 (4.5-11.0) K/mm3 RBC 4.37 (3.65-5.03) M/mm3 Hgb 12.2 (10.1-14.3) gm/dl Hct 37.4 (30.3-42.9) % Plt Count 252 (140-440) K/mm3 Lymph # (Auto) 2.6 (1.2-5.4) K/mm3 [place] # (Auto) 0.4 (0.0-0.8) K/mm3 Eos # (Auto) 0.1 (0.0-0.4) K/mm3 Baso # (Auto) 0.1 (0.0-0.1) K/mm3 Comprehensive Metabolic Panel 01/22/21 Range/Units 03:55 Sodium 142 (137-145) mmol/L Potassium 4.2 (3.6-5.0) mmol/L Chloride 108.3 H (98-107) mmol/L Carbon Dioxide 22 (22-30) mmol/L BUN 15 (7-17) mg/dL Creatinine 0.8 (0.6-1.2) mg/dL Glucose 122 H (65-100) mg/dL Calcium 8.8 (8.4-10.2) mg/dL - Imaging and Cardiology EKG: report reviewed, image reviewed Echo: report reviewed Cardiac cath: report reviewed - Telemetry EKG Rhythm: Sinus Rhythm - EKG Sinus rhythms and dysrhythmias: sinus rhythm
--- NOTE | 2021-01-22 13:38 | Consultation ---
History of Present Illness Consult date: 01/22/21 Requesting physician: DAVID DEJESUS Reason for consult: dyspnea History of present illness: 55 y/o female with shortness of breath with exertion for the last 6-8 weeks. patient denies any chest pain prior this. No smoking. No prior history of lung disease. She saw my partner in [place] and had full PFT with CXR done. At that time had normal breathing test per report. She is currently admitted with some worsening shortness of breath and chest pain. She had a cath this am that was negative for blockages but showed and EF of 25%. This was also seen on an echo in the office per other notes. Currently she is on room air and getting IV diuresis. Past History Past Medical History: diabetes, hypertension Past Surgical History: No surgical history Social history: no significant social history Family history: stroke Medications and Allergies Allergies Allergy/AdvReac Type Severity Reaction Status Date / Time No Known Allergies Allergy Verified 01/20/21 14:25 Active Meds: Active Medications Acetaminophen (Acetaminophen 325 Mg Tab) 650 mg PO Q4H PRN PRN Reason: Pain MILD(1-3)/Fever >100.5/RIVERO Albuterol (Albuterol 2.5 Mg/3 Ml Nebu) 2.5 mg IH Q4HRT PRN PRN Reason: Wheezing Last Admin: 01/22/21 11:11 Dose: 2.5 mg Documented by: Carvedilol (Carvedilol 6.25 Mg Tab) 12.5 mg PO BID [facility] Famotidine (Famotidine 20 Mg/2 Ml Inj) 20 mg IV BID [facility] Last Admin: 01/22/21 10:00 Dose: Not Given Documented by: Furosemide (Furosemide 40 Mg/4 Ml Inj) 40 mg IV 0600,1800 [facility] Heparin Sodium (Porcine) (Heparin 5,000 Unit/1 Ml Vial) 5,000 unit SUB-Q Q12HR [facility] Last Admin: 01/22/21 10:00 Dose: Not Given Documented by: Hydromorphone HCl (Hydromorphone 1 Mg/1 Ml Inj) 0.5 mg IV Q3H PRN PRN Reason: Pain , Severe (7-10) Last Admin: 01/21/21 18:25 Dose: 0.5 mg Documented by: Losartan Potassium (Losartan 50 Mg Tab) 100 mg PO QDAY [facility] Last Admin: 01/22/21 11:05 Dose: 100 mg Documented by: Ondansetron HCl (Ondansetron 4 Mg/2 Ml Inj) 4 mg IV Q8H PRN PRN Reason: Nausea And Vomiting Oxycodone/Acetaminophen (Oxycodone /Acetaminophen 5-325mg Tab) 1 tab PO Q6H PRN PRN Reason: Pain, Moderate (4-6) Pravastatin Sodium (Pravastatin 20 Mg Tab) 20 mg PO QHS [facility] Last Admin: 01/21/21 22:19 Dose: 20 mg Documented by: Sodium Chloride (Sodium Chloride 0.9% 10 Ml Flush Syringe) 10 ml IV BID [facility] Last Admin: 01/22/21 11:05 Dose: 10 ml Documented by: Sodium Chloride (Sodium Chloride 0.9% 10 Ml Flush Syringe) 10 ml IV PRN PRN PRN Reason: LINE FLUSH Review of Systems All systems: negative Physical Examination Vital signs: Vital Signs Temp Pulse Resp BP Pulse Ox 98.4 F 96 H 28 H 138/80 96 01/20/21 14:31 01/20/21 14:31 01/20/21 14:31 01/20/21 14:31 01/20/21 14:31 General appearance: no acute distress, alert Eyes: non-icteric ENT: oropharynx moist Neck: supple Effort: normal Ascultation: Bilateral: rales Percussion: Bilateral: not dull Tactile fremitus: Bilateral: normal Cardiovascular: regular rate and rhythm Gastrointestinal: normoactive bowel sounds, soft Results - Laboratory Findings CBC and BMP: 01/22/21 03:55 01/22/21 03:55 PT/INR, D-dimer PT 12.7 Sec. (12.2-14.9) 01/22/21 03:55 INR 0.90 (0.87-1.13) 01/22/21 03:55 Abnormal lab findings: Abnormal Labs 01/20/21 01/20/21 01/21/21 15:19 15:19 05:25 RDW 15.8 H 15.6 H Lymph % (Auto) 36.4 H Baso % (Auto) Chloride Carbon Dioxide 20 L Glucose POC Glucose Hemoglobin A1c ALT Total Creatine Kinase 165 H 01/21/21 01/21/21 01/21/21 05:25 05:25 15:51 RDW Lymph % (Auto) Baso % (Auto) Chloride 108.3 H Carbon Dioxide Glucose 107 H POC Glucose 137 H Hemoglobin A1c 8.1 H ALT 71 H Total Creatine Kinase 01/22/21 01/22/21 01/22/21 03:55 03:55 05:17 RDW 16.0 H Lymph % (Auto) 42.5 H Baso % (Auto) 2.3 H Chloride 108.3 H Carbon Dioxide Glucose 122 H POC Glucose 155 H Hemoglobin A1c ALT Total Creatine Kinase - Diagnostic Findings Chest x-ray: image reviewed (cardiomegaly with pulmonary vascular congestion) Assessment and Plan 55 y/o female with new diagnosed systolic heart failure and cardiomyopathy. 1. need echo report to look for Pulmonary HTN, although given EF, if present is likely secondary to systolic dysfunction 2. Agree with diuresis given elevated LVEDP 3. Follow up any new cards recs 4. Will stop nebulizer treatments as not needed 5. Guarded prognosis.
--- NOTE | 2021-01-22 20:19 | Progress Note ---
Assessment and Plan (1) Acute coronary syndrome Current Visit: Yes Status: Acute Plan to address problem: Lexiscan was not requested Will defer to cardiology regarding cardiac cath scheduling Serial troponins and CK-MBs No heparin was started (2) Hypertension Current Visit: Yes Status: Chronic Qualifiers: Hypertension type: primary hypertension Qualified Code(s): I10 - Essential (primary) hypertension Plan to address problem: Patient initiated on losartan 50 mg once a day (3) T2DM (type 2 diabetes mellitus) Current Visit: Yes Status: Chronic Qualifiers: Diabetes mellitus group home insulin use: unspecified group home insulin use status Plan to address problem: Coverage for now and check hemoglobin A1c Patient is not sure about her medications No medications to be reconciled (4) Morbid obesity with BMI of 40.0-44.9, adult Current Visit: Yes Status: Chronic Plan to address problem: Patient counseled about her weight and referral to bariatric surgery to be given at the time of discharge Dr. Bolden is in-house bariatric surgeon (5) DVT prophylaxis Current Visit: Yes Status: Acute Plan to address problem: On heparin and GI prophylaxis Brief History: 01/21/21: Cardiac cath tomorrow Subjective Date of service: 01/22/21 Principal diagnosis: HFrEF Objective - Constitutional Vitals: Vital Signs - 12hr 01/22/21 01/22/21 01/22/21 10:40 11:11 11:32 Temperature 98.1 F Pulse Rate 95 H 95 H Pulse Rate [ 96 H Bilateral] Respiratory 18 Rate Respiratory 20 Rate [Bilateral ] Blood Pressure 158/84 O2 Sat by Pulse 98 Oximetry 01/22/21 01/22/21 01/22/21 12:00 12:07 14:58 Temperature 98.1 F 98.1 F 98.1 F Pulse Rate 86 Pulse Rate [ Bilateral] Respiratory 18 20 26 H Rate Respiratory Rate [Bilateral ] Blood Pressure 148/86 143/83 115/63 O2 Sat by Pulse 98 Oximetry 01/22/21 19:25 Temperature 98.1 F Pulse Rate 85 Pulse Rate [ Bilateral] Respiratory 16 Rate Respiratory Rate [Bilateral ] Blood Pressure 157/83 O2 Sat by Pulse 97 Oximetry - Labs CBC & Chem 7: 01/22/21 03:55 01/22/21 03:55 Labs: Abnormal lab results 01/22/21 01/22/21 01/22/21 Range/Units 03:55 03:55 05:17 RDW 16.0 H (13.2-15.2) % Lymph % (Auto) 42.5 H (13.4-35.0) % Baso % (Auto) 2.3 H (0.0-1.8) % Chloride 108.3 H (98-107) mmol/L Glucose 122 H (65-100) mg/dL POC Glucose 155 H (70-105) mg/dL HEART Score - HEART Score EKG: Normal Age: 45-65 Risk factors: 1-2 risk factors Troponin: Troponin T < 0.010 ng/mL (0.00-0.029) 01/21/21 10:36 Troponin: < normal limit - Critical Actions Critical Actions: 0-3 pts:0.9-1.7%risk of adverse cardiac event.Candidate for discharge
[2021-01-22] MEDS: FUROSEMIDE 40 MG/4 ML INJ IV SCH (21:12)
[2021-01-22] MEDS: PRAVASTATIN 20 MG TAB PO SCH (21:13)
[2021-01-22] MEDS ORDERED: INSULIN LISPRO 100 UNIT/ML SUB-Q ONE (23:22)
[2021-01-23 06:22] LABS: BUN/Creatinine Ratio 19; Blood Urea Nitrogen 15 mg/dL (7-17); Calcium 9.1 mg/dL (8.4-10.2); Hemolysis Index 1
[2021-01-23] MEDS: INSULIN LISPRO 100 UNIT/ML SUB-Q SCH ×2 (07:10→07:30)
[2021-01-23] MEDS: FUROSEMIDE 40 MG/4 ML INJ IV SCH (07:53)
[2021-01-23 08:32] VITALS: BP 118/70
[2021-01-23] MEDS ORDERED: FAMOTIDINE 20 MG TAB PO SCH (11:00)
[2021-01-23] MEDS ORDERED: carvediloL 12.5 MG TAB PO SCH (11:00)
--- NOTE | 2021-01-23 11:55 | Progress Note ---
Assessment and Plan C performed yesterday in the setting of newly diagnosed cardiomyopathy, which revealed no evidence of significant CAD with findings most consistent with mod- severe dilated non-ischemic cardiomyopathy, EF 35-40%. Pt is euvolemic upon assessment today. Transition to PO Lasix 40mg daily. Continue Coreg 12.5mg BID and Losartan 100mg daily. Currently stable cardiac status. No objection to discharge from a Cardiology standpoint. Follow-up with Dr. Burrows in our [place] office on 02/13/2021 @ 3:30pm ([phone]). Pt seen in conjunction with Dr. Casandra Edwards, who agrees with the assessment and plan of care. - Patient Problems (1) Chest pain Current Visit: Yes Status: Resolved (2) Cardiomyopathy Current Visit: Yes Status: Acute (3) HFrEF (heart failure with reduced ejection fraction) Current Visit: Yes Status: Acute (4) Hypertension Current Visit: Yes Status: Chronic Qualifiers: Hypertension type: primary hypertension Qualified Code(s): I10 - Essential (primary) hypertension (5) T2DM (type 2 diabetes mellitus) Current Visit: Yes Status: Chronic Qualifiers: Diabetes mellitus middle or intermediate [employer] principal insulin use: unspecified intermediate insulin use status Subjective Date of service: 01/23/21 Principal diagnosis: HFrEF Interval history: Significant UOP ~4.5L noted overnight. States she is feeling much better today. Denies chest pain, SOB, or any additional complaints. Able to ambulate up/down hallway without issues. SR 70s on tele, no events. Objective Last Vital Signs Temp 97.9 F 01/23/21 08:11 Pulse 97 H 01/23/21 12:19 Resp 18 01/23/21 08:11 BP 118/70 01/23/21 08:11 Pulse Ox 97 01/23/21 08:11 - Physical Examination General: No Apparent Distress HEENT: Positive: EOMI, Normocephaly Neck: Positive: neck supple, trachea midline. Negative: JVD/HJR Cardiac: Positive: Reg Rate and Rhythm, S1/S2 Lungs: Positive: clear to auscultation Neuro: Positive: Grossly Intact Abdomen: Positive: Soft. Negative: Tender Skin: Negative: Rash Incision: Cardiac Cath Site (R radial - clean/dry/intact, no evidence of bleeding or hematoma) Extremities: Present: upper extr. pulses, lower extr. pulses. Absent: edema - Labs and Meds Comprehensive Metabolic Panel 01/23/21 Range/Units 05:08 Sodium 141 (137-145) mmol/L Potassium 3.9 (3.6-5.0) mmol/L Chloride 105.7 (98-107) mmol/L Carbon Dioxide 25 (22-30) mmol/L BUN 15 (7-17) mg/dL Creatinine 0.8 (0.6-1.2) mg/dL Glucose 131 H (65-100) mg/dL Calcium 9.1 (8.4-10.2) mg/dL - Imaging and Cardiology EKG: report reviewed, image reviewed Pharmacologic stress test: report reviewed (12/20/2020 - abnormal) Echo: report reviewed (12/20/2020 - EF 20-25%, LV mildly dilated, inferior & septal amato appear moderately hypokinetic, increased LA pressure, grade 2 diastolic dysfunction) Cardiac cath: report reviewed (01/22/2021 - no evidence of significant coronary artery disease, mod-severe global left ventricular hypokinesis (EF 35 to 40%), markedly elevated LVEDP, no evidence of , findings consistent with mod-severe dilated non-ischemic cardiomyopathy) - Telemetry EKG Rhythm: Sinus Rhythm - EKG Sinus rhythms and dysrhythmias: sinus rhythm
[2021-01-23] MEDS: LOSARTAN 50 MG TAB PO SCH (12:19)
[2021-01-23] MEDS: HEPARIN 5,000 UNIT/1 ML VIAL SUB-Q SCH (12:22)
--- NOTE | 2021-01-23 13:02 | Progress Note ---
Assessment and Plan 55 y/o female with new diagnosed systolic heart failure and cardiomyopathy. 01/23/21: EF is low, confirmed by cards. Tolerated diuresis well and feels much better. Reviewed Angelo from office and showed no obstruction, only suggested restriction which makes sense given heart size from cardiomyopathy. Does not need any bronchodilator therapy at discharge. Will have patient follow up with me in 10-14 days with walk test to make sure oxygenation remains stable. No objection to discharge pulm carl. Will sign off. 1. need echo report to look for Pulmonary HTN, although given EF, if present is likely secondary to systolic dysfunction 2. Agree with diuresis given elevated LVEDP 3. Follow up any new cards recs 4. Will stop nebulizer treatments as not needed 5. Guarded prognosis. Subjective Date of service: 01/23/21 Principal diagnosis: HFrEF Interval history: No acute events. Feels great. Thinking she might go home today. Objective Vital Signs - 12hr 01/23/21 01/23/21 01/23/21 03:00 03:44 08:11 Temperature 98.0 F 97.9 F Pulse Rate 77 77 81 Respiratory 16 18 Rate Blood Pressure 89/44 118/70 O2 Sat by Pulse 100 97 Oximetry 01/23/21 01/23/21 12:18 12:19 Temperature Pulse Rate 97 H 97 H Respiratory Rate Blood Pressure O2 Sat by Pulse Oximetry Constitutional: no acute distress, alert Eyes: non-icteric ENT: oropharynx moist Neck: supple Effort: normal Ascultation: Bilateral: rales Percussion: Bilateral: not dull Tactile fremitus: Bilateral: normal Cardiovascular: regular rate and rhythm Gastrointestinal: normoactive bowel sounds, soft CBC and BMP: 01/22/21 03:55 01/23/21 05:08 ABG, PT/INR, D-dimer: PT/INR, D-dimer PT 12.7 Sec. (12.2-14.9) 01/22/21 03:55 INR 0.90 (0.87-1.13) 01/22/21 03:55 Abnormal lab findings: Abnormal Labs 01/20/21 01/20/21 01/21/21 15:19 15:19 05:25 RDW 15.8 H 15.6 H Lymph % (Auto) 36.4 H Baso % (Auto) Chloride Carbon Dioxide 20 L Glucose POC Glucose Hemoglobin A1c ALT Total Creatine Kinase 165 H 01/21/21 01/21/21 01/21/21 05:25 05:25 15:51 RDW Lymph % (Auto) Baso % (Auto) Chloride 108.3 H Carbon Dioxide Glucose 107 H POC Glucose 137 H Hemoglobin A1c 8.1 H ALT 71 H Total Creatine Kinase 01/22/21 01/22/21 01/22/21 03:55 03:55 05:17 RDW 16.0 H Lymph % (Auto) 42.5 H Baso % (Auto) 2.3 H Chloride 108.3 H Carbon Dioxide Glucose 122 H POC Glucose 155 H Hemoglobin A1c ALT Total Creatine Kinase 01/22/21 01/23/21 01/23/21 22:00 05:08 11:26 RDW Lymph % (Auto) Baso % (Auto) Chloride Carbon Dioxide Glucose 131 H POC Glucose 235 H 265 H Hemoglobin A1c ALT Total Creatine Kinase
--- NOTE | 2021-01-23 15:12 | Discharge Summary ---
Providers - Providers Date of Admission: 01/22/21 11:28 Date of discharge: 01/23/21 Attending physician: ORALIA DORMAN 01/20/21 22:43 Consult to Physician [CONS] Routine Comment: Consulting Provider: CHANO MARI Physician Instructions: Reason For Exam: Acute coronary syndrome 01/21/21 10:51 Consult to Physician [CONS] Routine Comment: Consulting Provider: [facility] Physician Instructions: Reason For Exam: SOB 01/22/21 13:11 Consult to Dietitian/Nutrition [CONS] Routine Physician Instructions: Reason For Exam: Reason for Consult: Diet education Primary care physician: [facility] [facility] Hospitalization Condition: Fair Disposition: 01 HOME / SELF CARE / HOMELESS Final Discharge Diagnosis (Prints w/discharge instructions): Chest pain, likely from new onset CHF. Cardiomyopathy, acute. Acute systolic HFrEF 20-25%. HTN. Morbid pbesity. DM type 2 Time spent for discharge: 34 minutes Core Measure Documentation - Palliative Care Palliative Care/ Comfort Measures: Not Applicable - Core Measures Any of the following diagnoses?: none Exam - Constitutional Vitals: Temp Pulse Resp BP Pulse Ox 97.9 F 97 H 18 118/70 97 01/23/21 08:11 01/23/21 12:19 01/23/21 08:11 01/23/21 08:11 01/23/21 08:11 Plan Activity: advance as tolerated Weight Bearing Status: Non-Weight Bearing Diet: low fat, low salt Special Instructions: restrict fluid intake to (1.5L per day), record daily weights Follow up with: PAUL HSARPE MD [Primary Care Provider] - 7 Days ATUL MENA MD [Staff Physician] - 7 Days Prescriptions: carvediloL [Coreg] 12.5 mg PO BID #60 tablet Losartan [Cozaar] 100 mg PO QDAY #30 tablet Furosemide [Lasix TAB] 40 mg PO QDAY #30 tablet
[2021-01-24] MEDS ORDERED: FUROSEMIDE 40 MG TAB PO SCH (10:00)
== END 2021-01-23 16:10 | disposition home health service (06) | DRG 286 ==
LOC: ED 14:23 → 4A 16:28 → OBSVTOIN 01-22 11:28
PROVIDERS: ADMIT Internal Medicine; ATTEND Internal Medicine
PROC: 4A023N7 Measurement of Cardiac Sampling and Pressure, Left Heart, Percutaneous Approach (ICD-10-PCS; principal; 2021-01-22)
PROC: B2151ZZ Fluoroscopy of Left Heart using Low Osmolar Contrast (ICD-10-PCS; 2021-01-22)
PROC: B2111ZZ Fluoroscopy of Multiple Coronary Arteries using Low Osmolar Contrast (ICD-10-PCS; 2021-01-22)
DX: I11.0 Hypertensive heart disease with heart failure (principal); I50.21 Acute systolic (congestive) heart failure; I24.9 Acute ischemic heart disease, unspecified; Z68.41 Body mass index [BMI] 40.0-44.9, adult; I42.9 Cardiomyopathy, unspecified; E66.01 Morbid (severe) obesity due to excess calories; E11.9 Type 2 diabetes mellitus without complications; Z82.3 Family history of stroke
CPT/HCPCS: 36415; 71046; 80048; 80053; 82550; 82553; 82962; 83036; 83880; 84484; 85025; 85610; 85730; 86850; 86900; 86901; 93005; 93458; 94640; G0378; A9270-GY; C1894; J1170; J1644; J1815; J1940; J2250; J2405; J3010; J7030; J7040; Q9967